=== PATIENT | male | born 1940 | race Caucasian/White ===

== ENCOUNTER 2022-10-16 00:34 | Emergency (ER) | payer MEDICARE ==
[~2022-10-16] VITALS: Ht 182.9 cm; Wt 96.0 kg
[2022-10-16] MEDS ORDERED: LIPITOR20 MG PO (01:02)
[2022-10-16] MEDS ORDERED: COREG6.25 MG PO (01:02)
[2022-10-16] MEDS ORDERED: ELIQUIS5 MG PO (01:03)
[2022-10-16] MEDS ORDERED: ALLOPURINOL300 MG PO (01:03)
--- NOTE | 2022-10-16 17:51 | EKG ---
[facility] [address] [facility] [place] [id number] Signed Atrial fibrillation with rapid ventricular response Inferior infarct , age undetermined Anterior infarct , age undetermined Abnormal ECG No previous ECGs available Confirmed by CORBY NINA MD ([id number]) on 10/16/2022 5:51:34 PM Electronically Signed By: CORBY NINA MD 10/16/221750 PATIENT NAME: PERLITATRISTENLIZY FELICIANO Electrocardiogram DATE OF : 44 PHYSICIAN: CORBY NINA MD REPORT #: [id number] REPORT IS CONFIDENTIAL AND NOT TO BE RELEASED WITHOUT AUTHORIZATION
== END 2022-10-16 09:50 | disposition short-term general hospital (02) ==
LOC: ED 00:34
DX: I74.3 Embolism and thrombosis of arteries of the lower extremities (principal); I48.91 Unspecified atrial fibrillation; I10 Essential (primary) hypertension; M10.9 Gout, unspecified; Z79.899 Other long term (current) drug therapy; Z20.822 Contact with and (suspected) exposure to COVID-19
CPT/HCPCS: 36415; 73706; 80053; 84484; 85025; 85379; 85610; 85730; 87502; 93005; 93010; 96374; 96375; 99285-25; J1644; J2270; J7030; Q9967; U0003